=== PATIENT | female | born 1985 | race Caucasian/White ===

== ENCOUNTER 2017-07-12 13:34 | Emergency (ER) | payer OTHER ==
[~2017-07-12] VITALS: Ht 157.5 cm; Wt 54.4 kg
[2017-07-12 13:40] VITALS: BP 93/55
[2017-07-12] MEDS ORDERED: ACETAMINOPHEN ES 500 MG TABLET ONE (13:54)
[2017-07-12] MEDS ORDERED: ACETAMINOPHEN 325 MG TABLET PO ONE (14:00)
== END 2017-07-12 15:04 | disposition home or self-care (01) ==
LOC: ER 13:35
DX: J02.8 Acute pharyngitis due to other specified organisms (principal)
CPT/HCPCS: 86403-TC; 87070-TC; A4606; Z7610